=== PATIENT | female | born 1955 | race Hispanic/Latino ===

== ENCOUNTER 2018-11-23 06:44 | Day surgery (SDC) | payer SELFPAY ==
[~2018-11-23] VITALS: Ht 154.9 cm; Wt 59.0 kg
[~2018-11-23 06:44] MED LIST: ENALAPRIL2.5 MG OR; FELDENE20 MG OR; FERROUS SULFAT324 MG PO; JANUVIA100 MG PO; LIPITOR20 M1 PO; LISINOPRIL20 M1 PO; LORTAB 5 OR; LOSARTAN POT25 MG PO; LYRICA75 MG OR; MEDDOSEPAK OR; METFORMIN1000 MG PO; METFORMIN500 MG OR; METFORMIN500 MG PO; TRESIBA FL100 UNIT/M
[2018-11-23 09:59] VITALS: BP 154/78
== END 2018-11-23 10:10 | disposition home or self-care (01) | DRG 812 ==
LOC: ENDO 06:44 → ORM 08:45 → ENDO 10:10
PROVIDERS: ATTEND Surgery
PROC: 0DBP8ZX Excision of Rectum, Via Natural or Artificial Opening Endoscopic, Diagnostic (ICD-10-PCS; principal; 2018-11-23)
DX: D64.9 Anemia, unspecified (principal); D12.8 Benign neoplasm of rectum; K64.8 Other hemorrhoids; I10 Essential (primary) hypertension; E11.9 Type 2 diabetes mellitus without complications